=== PATIENT | female | born 1965 | race Hispanic/Latino ===

== ENCOUNTER 2021-04-28 08:04 | Emergency (ER) | payer OTHER, SELFPAY ==
[2021-04-28] VITALS (22 sets, daily range): BP systolic 118–143; BP diastolic 74–90; PULSE 60–90; RESP 8–19; O2SAT 96–100
--- NOTE | ~2021-04-28 | XR_ITS ---
EXAMINATION: XR chest 2V 04/28/2021 08:57 INDICATION: Chest pain PROCEDURE: 2 view chest COMPARISON: 12/25/2016 FINDINGS: The lungs are clear. The cardiomediastinal silhouette is within normal limits. There are no pleural effusions. There is no pneumothorax suspected. IMPRESSION: 1: NO ACUTE CARDIOPULMONARY DISEASE. Reviewed, dictated and finalized at location A.
--- NOTE | 2021-04-28 08:22 | ED.CHESTPAIN ---
HPI - Chest Pain General Chief Complaint: Chest Pain Stated Complaint: CP Time Seen by Provider: 04/28/21 08:06 History of Present Illness HPI narrative: Patient is a 55-year-old female who presents ER with chest pain. Left-sided. Began at 5:30 AM. It is a poking sensation that goes throughout her left side from the shoulder down to the lower chest wall. Its worse with physical movements. No shortness of breath. She has had some cough. No fevers or chills or sweats. No exertional component. She has found no alleviating factors. Patient also reports mild diffuse abdominal discomfort but has no additional details concerning this. Related Data Allergies Allergy/AdvReac Type Severity Reaction Status Date / Time No Known Drug Allergies Allergy Unknown Unknown Verified 04/28/21 08:20 Review of Systems Review of Systems: All systems reviewed & are unremarkable except as noted in HPI and below Constitutional: Constitutional: Denies chills, Denies fever(s) and Denies weakness ENT: Denies nasal congestion and Denies sore throat Cardiovascular: Cardiovascular: Reports chest pain and Denies radiating jaw, neck or arm pain Respiratory: Respiratory: Reports cough, Denies dyspnea and Denies wheezing Gastrointestinal: Gastrointestinal: Reports abdominal pain, Denies nausea and Denies vomiting PMFSH Past Medical History Medical History (Updated 04/28/21 @ 12:06 by Rajinder Merino MD) Diabetes Surgical History Surgical History (Updated 04/28/21 @ 08:24 by Rajinder Merino MD) History of hysterectomy Social History Social History (Updated 04/28/21 @ 08:24 by Rajinder Merino MD) Smoking status: Never smoker Exam Narrative: Exam Narrative: GENERAL: Well-appearing, well-nourished, and in no acute distress. HEAD: Normocephalic, atraumatic. CHEST: Clear to auscultation. No respiratory distress. Tender palpation of the left side of the chest wall with light palpation. HEART: Regular rate and rhythm. Normal peripheral pulses. ABDOMEN: Soft, nontender, nondistended. EXTREMITIES: Normal range of motion. No edema. SKIN: Warm, dry, no rash. NEURO: Alert and oriented x3. PSYCH: Normal mood and affect. Course Course Emergency Course: Unremarkable evaluation of chest pain. No pneumonia or cardiac injury. Discharge home. Vital Signs Vital signs: Vital Signs Pulse Rate 85 04/28/21 08:04 Respiratory Rate 18 04/28/21 08:04 Blood Pressure 143/90 H 04/28/21 08:04 Pulse Oximetry 99 04/28/21 08:04 Pulse Rate 63 04/28/21 11:30 Respiratory Rate 15 04/28/21 11:30 Blood Pressure 135/82 04/28/21 11:01 Pulse Oximetry 99 04/28/21 11:30 MDM - Chest Pain Lab Data Result diagrams: 04/28/21 08:36 04/28/21 08:36 Labs: Lab Results 04/28/21 04/28/21 04/28/21 Range/Units 08:36 08:36 08:36 WBC 6.4 (4.5-10.0) K/mm3 RBC 4.46 (4.2-5.4) M/mm3 Hgb 13.5 (12.0-15.0) g/dL Hct 40.5 (37.0-47.0) % MCV 90.8 (80-100) fl MCH 30.3 (26-34) pg MCHC 33.3 (32-36) g/dl RDW 12.8 (11.5-14.5) % Plt Count 223 (150-375) k/mm3 MPV 10.1 (7.4-10.4) fl Immature Gran % (Auto) 0.3 (0-0.5) % Neut % (Auto) 45.5 (45.5-73.1) % Lymph % (Auto) 44.8 H (18.3-44.2) % [place] % (Auto) 7.8 (2.6-8.5) % Eos % (Auto) 1.3 (0-4.4) % Baso % (Auto) 0.3 (0.2-1.2) % Lymph # (Auto) 2.86 (0.9-3.2) K/mm3 [place] # (Auto) 0.5 (0.1-0.6) K/mm3 Eos # (Auto) 0.1 (0-0.3) K/mm3 Baso # (Auto) 0.0 (0.0-0.1) K/mm3 Abs Immat Gran (auto) 0.02 (0.00-0.031) K/mm3 Absolute Neuts (auto) 2.9 (1.3-6.7) K/mm3 Absolute Nucleated RBC 0.0 (0.0-0.012) K/mm3 Nucleated RBC % 0.0 (0.0-0.2) % PT 12.6 (11.1-14.7) Seconds INR 0.9 APTT 29.2 (22.3-36.8) SECONDS Sodium 140 (137-145) mmol/L Potassium 3.4 (3.4-5.0) mmol/L Chloride 105 (98-107) mmol/L Carbon Dioxide 25 (22-30) mmol/L Anion
[2021-04-28] MEDS: KETOROLAC 30 MG/ML VIAL (*BKC) IV PUSH (08:27)
--- NOTE | 2021-04-28 08:38 | ECG_ITS ---
Measurements Intervals [place] Rate: 90 P: 45 SC: 150 QRS: 16 QRSD: 89 T: 29 QT: 366 QTc: 449 Interpretive Statements SINUS RHYTHM BASELINE ARTIFACT- V5-V6 NORMAL ECG Electronically Signed On 04-28-2021 8:41:02 CDT by Michael Loo D.O.
[2021-04-28 08:42] LABS: Basophils Percent Auto 0.3 % (0.2-1.2); Eosinophils Absolute Auto 0.1 K/mm3 (0-0.3); Eosinophils Percent Auto 1.3 % (0-4.4); Hematocrit 40.5 % (37.0-47.0); Hemoglobin 13.5 g/dL (12.0-15.0); Immature Granulocyte Absolute 0.02 K/mm3 (0.00-0.031); Immature Granulocyte Percent A 0.3 % (0-0.5); Lymphocytes Absolute Auto 2.86 K/mm3 (0.9-3.2); Lymphocytes Percent Auto 44.8 % (18.3-44.2); Mean Corpuscular HGB Conc 33.3 g/dl (32-36); Mean Corpuscular Hemoglobin 30.3 pg (26-34); Mean Corpuscular Volume 90.8 fl (80-100); Mean Platelet Volume 10.1 fl (7.4-10.4); Monocytes Absolute Auto 0.5 K/mm3 (0.1-0.6); Monocytes Percent Auto 7.8 % (2.6-8.5); Neutrophils Absolute Auto 2.9 K/mm3 (1.3-6.7); Neutrophils Percent Auto 45.5 % (45.5-73.1); Platelet Count Result 223 k/mm3 (150-375); Red Blood Count 4.46 M/mm3 (4.2-5.4); Red Cell Distribution Width 12.8 % (11.5-14.5); White Blood Count 6.4 K/mm3 (4.5-10.0)
[2021-04-28 08:52] LABS: INR 0.9; Prothrombin Time 12.6 Seconds (11.1-14.7)
[2021-04-28 08:53] LABS: Partial Thromboplastin Time 29.2 SECONDS (22.3-36.8)
[2021-04-28 08:59] LABS: Alanine Aminotransferase 30 U/L (4-35); Albumin Level 4.4 g/dL (3.5-5.1); Alkaline Phosphatase 87 U/L (38-126); Anion Gap 10 mmol/L (8-16); Aspartate Amino Transferase 26 U/L (14-36); Bilirubin,Total 0.4 mg/dL (0.2-1.3); Blood Urea Nitrogen 14 mg/dL (7-17); Carbon Dioxide 25 mmol/L (22-30); Chloride 105 mmol/L (98-107); Estimated Glomerular Filt Rate > 60; Glucose 143 mg/dL (65-105); Potassium 3.4 mmol/L (3.4-5.0); Sodium 140 mmol/L (137-145)
[2021-04-28 09:07] LABS: Troponin I < 0.012 ng/mL (0.000-0.034)
[2021-04-28 11:43] LABS: Troponin I < 0.012 ng/mL (0.000-0.034)
== END 2021-04-28 12:26 | disposition home or self-care (01) ==
PROVIDERS: Emergency Provider Emergency Medicine
DX: R07.9 Chest pain, unspecified (principal); E11.9 Type 2 diabetes mellitus without complications
CPT/HCPCS: 36415; 71046; 80053; 84484; 85025; 85610; 85730; 93005; 96374; 99284; J1885

== ENCOUNTER 2021-05-30 10:13 | Outpatient (CLI) | payer OTHER, SELFPAY ==
--- NOTE | ~2021-05-30 | US_ITS ---
EXAMINATION: US right upper quadrant DATE: 05/30/2021 10:41 INDICATION: Right upper quadrant abdominal pain. TECHNIQUE: Multiple grayscale and Doppler ultrasound images of the abdomen were obtained. COMPARISON: None FINDINGS: The visualized portions of the head and body of the pancreas are normal. There is diffuse h epatic steatosis. No liver surface nodularity. There is normal flow in main portal vein. The gallblad darling is normal in size. No gallstones or gallbladder wall thickening. There is no sonographic [place] s ign. The common duct is normal and measures 4 mm. IMPRESSION: 1. Diffuse hepatic steatosis. Reviewed, dictated and finalized at location A.
== END 2021-05-30 10:14 ==
DX: R10.11 Right upper quadrant pain (principal); K76.0 Fatty (change of) liver, not elsewhere classified
CPT/HCPCS: 76705

== ENCOUNTER 2024-08-31 08:06 | Outpatient (CLI) | payer OTHER, SELFPAY ==
--- NOTE | 2024-08-31 | EST_ITS ---
Patient Info Name: Marietta Meier Age: 58 years : 1965 Gender: Female Ht: 58 in Wt: 145 lbs BSA: 1.67 m2 HR: 68 bpm BP: 141 / 54 mmHg Exam Date: 08/31/2024 8:33 AM Exam Location: Echo Lab Patient Status: Outpatient Admit Date: 08/31/2024 Staff Ordering Physician: CRYSTALTOM [employer] Farmworker: Shobha Anthony RDCS Attending Provider: CRYSTALTOM Referring Physician: WAN WAGNER; Exercise Technologist: Shobha Anthony RDCS Exercise Physician: Michael Loo DO Exam Type: CA stress echo Study Info Indications R07.9 - Chest pain, unspecified Treadmill exercise stress echocardiogram is performed. Summary 1. 1. Inconclusive Ke exercise stress test for ischemic ST changes by ECG criteria as she achieved only 69% MPHR for age group. 2. 2. Poor functional capacity, achieving 5 METs of workload. 3. 3. Baseline hypertension. 4. 4. Appropriate HR response to exercise. 5. 5. Appropriate HR recovery at 1 minute post exercise. 6. 6. Negative stress echocardiogram for ischemia by wall motion analysis. 7. 7. Patient informed of the above results. Stress Echo Findings Left Ventricle Appropriate increase in LV endocardial thickening with systole. Appropriate augmentation of contractility with systole. No wall motion abnormality. Left Ventricle Normal LV systolic function, no wall motion abnormality. Protocol: Ke Stress ECG Details Stage: REST Duration (min): 1 min : 1 sec Speed (mph): 0.0 Grade (%): 0 HR (bpm): 59 SBP (mmHg): 141 DBP (mmHg): 54 METS: --- Stage: REST Duration (min): 5 min : 53 sec Speed (mph): 0.0 Grade (%): 0 HR (bpm): 75 SBP (mmHg): 141 DBP (mmHg): 54 METS: --- Stage: STAGE 1 Duration (min): 1 min : 0 sec Speed (mph): 1.7 Grade (%): 10 HR (bpm): 100 SBP (mmHg): 141 DBP (mmHg): 54 METS: --- Stage: STAGE 1 Duration (min): 2 min : 0 sec Speed (mph): 1.7 Grade (%): 10 HR (bpm): 101 SBP (mmHg): 141 DBP (mmHg): 54 METS: --- Stage: STAGE 1 Duration (min): 3 min : 0 sec Speed (mph): 1.7 Grade (%): 10 HR (bpm): 104 SBP (mmHg): 151 DBP (mmHg): 83 METS: --- Stage: STAGE 2 Duration (min): 0 min : 21 sec Speed (mph): 2.5 Grade (%): 12 HR (bpm): 110 SBP (mmHg): 151 DBP (mmHg): 83 METS: --- Stage: RECOVERY Duration (min): 0 min : 38 sec Speed (mph): 0.0 Grade (%): 0 HR (bpm): 76 SBP (mmHg): 151 DBP (mmHg): 83 METS: --- Stage: RECOVERY Duration (min): 1 min : 38 sec Speed (mph): 0.0 Grade (%): 0 HR (bpm): 67 SBP (mmHg): 151 DBP (mmHg): 83 METS: --- Stage: RECOVERY Duration (min): 2 min : 38 sec Speed (mph): 0.0 Grade (%): 0 HR (bpm): 64 SBP (mmHg): 151 DBP (mmHg): 83 METS: --- Stage: RECOVERY Duration (min): 2 min : 50 sec Speed (mph): 0.0 Grade (%): 0 HR (bpm): 64 SBP (mmHg): 140 DBP (mmHg): 82 METS: --- Rest HR: 75 bpm Peak HR: 111 bpm Rest Sys BP: 141 mmHg Peak Sys BP: 151 mmHg Max Pred HR: 161 bpm % Max Pred HR: 69 % Target H
== END 2024-08-31 08:07 | disposition home or self-care (01) ==
DX: R94.39 Abnormal result of other cardiovascular function study (principal); R07.9 Chest pain, unspecified
CPT/HCPCS: 93351

== ENCOUNTER 2024-09-13 10:30 | Outpatient (RCR) | payer OTHER, SELFPAY | END 2024-10-04 11:53 | disposition home or self-care (01) | LOC: ANHDMC 10:30 | DX: E11.00 Type 2 diabetes mellitus with hyperosmolarity without nonketotic hyperglycemic-hyperosmolar coma (NKHHC) (principal); E11.65 Type 2 diabetes mellitus with hyperglycemia; Z71.89 Other specified counseling | CPT/HCPCS: G0108 ==

== ENCOUNTER 2025-08-09 10:19 | Emergency (ER) | payer OTHER, SELFPAY ==
--- NOTE | ~2025-08-09 | XR_ITS ---
EXAMINATION: XR chest 2V, 08/09/2025 11:45 CDT HISTORY: epigastric pain for awhile, worse pain today COMPARISON: No comparisons available. Technique: 2 views obtained. Findings: The lungs are clear, no effusion. No pneumothorax. Heart is normal size. Mediastinal and hilar contours are within normal limits. Bony thorax no acute abnormality. Impression: No acute cardiopulmonary abnormality. Reviewed, dictated and finalized at location A. Impression: No acute cardiopulmonary abnormality.
[2025-08-09 10:32] VITALS: BP 153/79; PULSE 70; RESP 18; TEMP 36.4; O2SAT 100
[2025-08-09 11:05] VITALS: BP 138/73; PULSE 65; RESP 14; O2SAT 99
[2025-08-09 11:08] VITALS: BP 138/73; PULSE 73; RESP 14; O2SAT 100
--- NOTE | 2025-08-09 11:14 | ECG_ITS ---
Test Date: 2025-08-09 12:16:10 Measurements Intervals [place] Rate: 64 P: 46 VA: 144 QRS: 8 QRSD: 88 T: 13 QT: 422 QTc: 438 Interpretive Statements SINUS RHYTHM LOW QRS VOLTAGE IN PRECORDIAL LEADS [QRS DEFLECTION < 1.0 mV IN CHEST LEADS] No previous ECG available for comparison Electronically Signed On 08-09-2025 15:25:17 CDT by Claudia Foster M.D.
--- NOTE | 2025-08-09 11:18 | ED.GENADULT ---
HPI - General Adult General Chief complaint: Abdominal Pain Stated complaint: ABD PAIN Time Seen by Provider: 08/09/25 11:03 History of Present Illness HPI narrative: 59-year-old female presenting to the emergency department for evaluation for epigastric abdominal pain this been ongoing for the past 2 days. Patient does also report upper left and upper right abdominal pain. Patient declined any medications for pain control. She states she has had similar symptoms in the past but is unsure of what the diagnosis was. Related Data Allergies Allergy/AdvReac Type Severity Reaction Status Date / Time No Known Drug Allergies Allergy Unknown Unknown Verified 08/09/25 10:19 Review of Systems Review of Systems: All systems reviewed & are unremarkable except as noted in HPI and below PMFSH Past Medical History Medical History (Updated 08/09/25 @ 13:20 by Jey Marks MD) Diabetes Surgical History Surgical History (Updated 04/28/21 @ 08:24 by Rajinder Merino MD) History of hysterectomy Social History Social History (Updated 04/28/21 @ 08:24 by Rajinder Merino MD) Smoking status: Never smoker Exam Narrative: APPEARANCE: Well appearing, no pain, no distress, well-nourished. HEAD: normocephalic, atraumatic. EYES: PERRLA/EOMI, conjunctivae clear. NOSE: Normal no drainage EARS:TMS clear with good light reflex. THROAT: Pharynx clear, no exudate. NECK: Supple. No adenopathy, no masses. RESPIRATORY: Airway patent, respirations nonlabored. Clear to auscultation bilaterally, no rales, rhonchi, wheezing. CARDIOVASCULAR: Regular rate and rhythm without murmurs rubs or gallops. ABDOMINAL: Soft, nontender, nondistended, normal bowel sounds MUSCULOSKELETAL: Moves all extremities. Strength/ROM intact, No edema, No calf tenderness. NEURO: Alert. Cranial nerves II through XII intact. Good gait. Good coordination SKIN: Warm, dry. Normal Color Course Vital Signs Vital signs: Vital Signs Temperature 97.6 F 08/09/25 10:32 Pulse Rate 70 08/09/25 10:32 Respiratory Rate 18 08/09/25 10:32 Blood Pressure 153/79 H 08/09/25 10:32 Pulse Oximetry 100 08/09/25 10:32 Oxygen Delivery Room Air 08/09/25 10:32 Temperature 98.3 F 08/09/25 13:26 Pulse Rate 64 08/09/25 13:30 Respiratory Rate 14 08/09/25 13:30 Blood Pressure 123/73 08/09/25 13:30 Pulse Oximetry 98 08/09/25 13:30 Oxygen Delivery Room Air 08/09/25 11:05 Medical Decision Making MDM Narrative Medical decision making narrative: 59-year-old female presents emergency department for evaluation for epigastric pain. Patient is currently afebrile no leukocytosis hemoglobin 13.8. Patient has an INR 1.0. Patient has no acute abnormalities on her CMP including a normal lactic and lipase. Chest x-ray shows no acute cardiopulmonary abnormality. EKG shows normal sinus rhythm. On re-evaluation patient states she does feel improved from the GI cocktail. Patient will be started on omeprazole and encouraged close follow-up with GI. Patient was also encouraged close follow-up with primary care physician for additional outpatient cardiac testing. All questions concerns were addressed patient was well-appearing at time of discharge. Differential Diagnosis Differential Diagnosis: Gastritis, esophagitis, colitis, diverticulitis Vital Signs Vital Signs: Vital Signs Temperature 97.6 F 08/09/25 10:32 Pulse Rate 70 08/09/25 10:32 Respiratory Rate 18 08/09/25 10:32 Blood Pressure 153/79 H 08/09/25 10:32 Pulse Oximetry 100 08/09/25 10:32 Oxygen Delivery Room Air 08/09/25 10:32 Temperature 98.3 F 08/09/25 13:26 Pulse Rate 64 08/09/25 13:30 Respiratory Rate 14 08/09/25 13:30 Blood Pressure 123/73 08/09/25 13:30 Pulse Oximetry 98 08/09/25 13:30 Oxygen Delivery Room Air 08/09/25 11:05 Lab Data Lab results reviewed: Yes I reviewed the patient's lab results. 08/09/25 11:20 08/09/25 11:20 Labs: Lab Results 08/09/25 08/09/25 Range/Units 11:20 11:24 WBC 7.9 (4.5-10.0) K/mm3 RBC 4.62 (4.2-5.4) M/mm3 Hgb 13.8 (12.0-15.0) g/dL Hct 41.1 (37.0-47.0) % MCV 89.0 (80-100) fl MCH 29.9 (26-34) pg MCHC 33.6 (32-36) g/dl RDW 12.4 (11.5-14.5) % Plt Count 198 (150-375) k/mm3 MPV 10.4 (7.4-10.4) fl Immature Gran % (Auto) 0.3 (0-0.5) % Neut % (Auto) 48.6 (45.5-73.1) % Lymph % (Auto) 43.4 (18.3-44.2) % [place] % (Auto) 6.4 (2.6-8.5) % Eos % (Auto) 0.9 (0-4.4) % Baso % (Auto) 0.4 (0.2-1.2) % Lymph # (Auto) 3.44 H (0.9-3.2) K/mm3 [place] # (Auto) 0.5 (0.1-0.6) K/mm3 Eos # (Auto) 0.1 (0-0.3) K/mm3 Baso # (Auto) 0.0 (0.0-0.1) K/mm3 Abs Immat Gran (auto) 0.02 (0.00-0.031) K/mm3 Absolute Neuts (auto) 3.9 (1.3-6.7) K/mm3 Absolute Nucleated RBC 0.000 (0.0-0.012) K/mm3 Nucleated RBC % 0.0 (0.0-0.2) % PT 12.9 (11.1-14.7) Seconds INR 1.0 APTT 27.6 (22.3-36.8) Seconds Sodium 135 L (137-145) mmol/L Potassium 3.7 (3.4-5.0) mmol/L Chloride 102 (98-107) mmol/L Carbon Dioxide 25 (22-30) mmol/L Anion Gap 8 (4-12) mmol/L BUN 18 H (7-17) mg/dL Creatinine 0.46 L (0.7-1.0) mg/dL Estim Creat Clear Calc Not Reportable Estimated GFR > 60 (59 - ) Glucose 96 (65-110) mg/dL Lactic Acid 0.8 (0.7-2.0) mmol/L Calcium 8.7 (8.4-10.2) mg/dL Total Bilirubin 0.7 (0.2-1.3) mg/dL AST 35 (14-36) U/L ALT 24 (6-35) U/L Alkaline Phosphatase 76 (38-126) U/L Total Protein 8.0 (6.3-8.2) g/dL Albumin 4.5 (3.5-5.1) g/dL Lipase 120 (23-300) U/L Imaging Data Radiologist's impression: Impressions Chest X-Ray 08/09/25 12:01 Impression: No acute cardiopulmonary abnormality. Discharge Plan Discharge Clinical Impression: Acute epigastric pain Patient Disposition: Home Condition: Stable Instructions: Antibiotic Form, Diet for Stomach Ulcers and Gastritis (ED), Abdominal Pain (ED), Epigastric Pain (ED) Additional Instructions: Avoid NSAIDs and avoid alcohol. Follow a bland diet. Omeprazole as directed for the next 14 days. Have close follow-up with GI. If you have any worsening symptoms then please call or return to the emergency department. Have close follow-up with primary care physician for additional outpatient cardiac testing. Patient Language: Azerbaijani Prescriptions: New omeprazole 20 mg capsule,delayed release(DR/EC) 20 mg PO DAILY 14 Days Qty: 14 0RF No Action acetaminophen 500 mg tablet 500 mg PO QID PRN (Reason: pain) Qty: 14 0RF Follow-up/Referrals: Ryder Prado MD [Physician, Gastroenterology] UNKNOWN,DOCTOR [Primary Care Provider]
--- OUTSIDE RECORDS SUMMARY | 2025-08-09 11:25 | XMS_ITS | Clinical Summary ---
Author Organization [facility] Address [address] [place] [address] Care Team Providers Care Campaign Associate Name Role Phone Romario Martell MD Unavailable [phone] Source Comments [facility] [employer],non-owned Affiliates and Associated Physician Practices is amultiple site organization consisting of ambulatory clinics and hospital sitesin [place], [place] and [place]. This disclosure is being madepursuant to the Care Everywhere program and may not contain all information available regarding this patient. Last updated 18.[facility] [employer] Allergies No known active allergies Medications * Be aware that medications may not be up to date on this document. Alwaysverify current medications with the patient. naproxen (NAPROSYN) 500 MG tablet 2 times daily. Active diazepam (VALIUM) 2 MG tablet Take 1 Tab by mouth 3 times daily as needed for Anxiety. 90 Tab 3 09/12/2012 Active diclofenac sodium (VOLTAREN) 50 MG tablet Take 1 Tab by mouth 2 times daily. 60 Tab 3 09/12/2012 Active METFORMIN HCL PO Act pramod Active Problems Problem Noted Date Diagnosed Date Degeneration of cervical intervertebral disc 11/2011 Social History Tobacco Use Types Packs/Day Years Used Date Smoking Tobacco: Never Smokeless Tobacco: Never Alcohol Use Standard Drinks/Week Comments Yes 0 (1 standard drink = 0.6 oz pur e alcohol) rarely Comments No Sex and Gender Information Value Date Recorded Sex Assigned at Not on file Legal Sex Female 11:51 AM CDT Gender Identity Not on file Sexual Orientation Not on file Last Filed Vital Signs Vital Sign Reading Time Taken Comments Blood Pressure 120/76 05/10/2018 12:01 PM CDT Pulse 130 05/10/2018 12:01 PM CDT Temperature 38.3 C (101 F) 05/10/2018 12:01 PM CDT Respiratory Rate 18 05/10/2018 12:01 PM CDT Oxygen Saturation 96% 05/10/2018 12:01 PM CDT Inhaled Oxygen Concentration - - Weight 56.2 kg (124 lb) 05/10/2018 12:01 PM CDT Height 147.3 cm (4' 10) 05/10/2018 12:01 PM CDT Body Mass Index 25.92 05/10/2018 12:01 PM CDT Plan of Treatment Health Maintenance Due Date Last Done Comments COLOGUARD (AGES 45-75) - COL ON CA SCREENING 1965 COLON MONITORING 1965 COLONOSCOPY - COLON CA SCREENING 1965 CT COLONOGRAPHY - COLON CA SCREENING 1965 Colorectal Cancer Screening 1965 FIT - COLON CA SCREENING 1965 FLEX SIG - COLON CA SCREENING 1965 LIPID TESTING 1965 MAMMOGRAM 1965 HIV SCREENING 1979 HEPATITIS C SCREENING 10/11/1982 DTAP/TDAP/TD VACCINES (1 - Tdap) 1983 PNEUMOCOCCAL VACCINE 50+ (1 of 1 - PCV) 2014 ZOSTER VACCINE (1 of 2) 2014 SCREENING FOR DIABETES 05/10/2018 DEPRESSION SCREENING 11/15/2024 COVID-19 VACCINE (1 - 2023-2 5 season) 2025 INFLUENZA VACCINE (#1) 2025 Respiratory Syncytial Virus (RSV) Vaccine Pt: or over 60 yrs (1 - 1-dose 75+ series) 2039 HEPATITIS B VACCINE Aged Out No longe r eligible based on patient's age to complete this topic HIB VACCINE Aged Out No longer eligi ble based on patient's age to complete this topic HPV VACCINE Aged Out No longer eligi ble based on patient's age to complete this topic MENINGOCOCCAL (Group B) VACC INE SHARED DECISION-MAKING Aged Out No longer eligibl e based on patient's age to complete this topic MENINGOCOCCAL GROUPS A/C/Y/W VACCINE Aged Out No longer eligible b ased on patient's age to complete this topic Insurance [facility] Address: [facility] [address] [place] [address] MEDICAID - [place] Care Teams Campaign Associate Relationship Specialty Start Date End Date Romario Martell MD Neurological Surgery 09/12/12
--- OUTSIDE RECORDS SUMMARY | 2025-08-09 11:26 | XMS_ITS | Clinical Summary ---
Author Organization [facility] ReplySend [place] Address [address] [place] [address] [place] [address] Care Team Providers Care Plastic Outfitter Name Role Phone Matilde Lacey MD Primary Care Provider [phone] Allergies No known active allergies Medications ergocalciferol (VITAMIN D2) 50,000 unit capsuleIndications:V itamin D deficiency Take 1 Capsule (50,000 Units) by mouth every 7 days. 12 Capsule 2 Active omeprazole (PriLOSEC) 20 mg Capsule, Delayed Release(E.C.) Take 20 mg by mouth daily. Active metFORMIN (GLUCOPHAGE) 500 mg tabletIndications:Ty pe 2 diabetes mellitus with hyperosmolarity without coma, without long-term current use of insulin (CMS/HCC) Take 1 Tablet (500 mg) by mouth 2 times daily with meals. 60 Tablet 4 Active rosuvastatin (Crestor) 10 mg tabletIndications:hy perlipidemia Take 1 Tablet (10 mg) by mouth daily. 30 Tablet 1 4 Active Active Problems Problem Noted Date Diagnosed Date Vitamin D deficiency 09/16/2022 Encounter for Papanicolaou s mear for cervical cancer screening 09/16/2022 Type 2 diabetes mellitus wit h hyperosmolarity without coma, without long-term current use of insulin 08/26/2022 Perforation of tympanic membrane 08/26/2022 Low grade squamous intraepit helial lesion on cytologic smear of cervix (LGSIL) 04/14/2018 Mixed conductive and sensori neural hearing loss of both ears 07/23/2014 Degeneration of cervical intervertebral disc 11/2011 Resolved Problems Problem Noted Date Diagnosed Date Resolved Date Abnormal mammogram of both breasts 04/14/2018 07/19/2018 Prediabetes 03/21/2018 08/26/2022 Lumbago 12/19/2012 08/26/2022 Encounters Date Type Department Care Team Description 07/31/2025 External Device Data [facility] ABSTRACTION Provider, Abstract 07/31/2025 External Device Data [facility] ABSTRACTION Provider, Abstract 07/24/2025 External Device Data [facility] ABSTRACTION Provider, Abstract 07/04/2025 External Device Data [facility] ABSTRACTION Provider, Abstract 06/19/2025 External Device Data [facility] ABSTRACTION Provider, Abstract 06/05/2025 External Device Data ST[facility] ABSTRACTION Provider, Abstract 05/30/2025 External Device Data ST[facility] ABSTRACTION Provider, Abstract 05/29/2025 External Device Data STL ABSTRACTION Provider, Abstract from Last 3 Months Immunizations Immunization Administration Dates Next Due (ADACEL/BOOSTRIX)(10 YR UP) TDAP VACCINE, 0.5ML, IM 03/11/2018 INFLUENZA VACCINE QUADRIVALENT 3 YR UP PF IM 10/2022 INFLUENZA VACCINE QUADRIVALENT 6 MOS UP IM 07/26 INFLUENZA VACCINE QUADRIVALENT 6 MOS UP PF IM Family History Medical History Relation Name Comments No Known Problems Daughter 1 No Known Problems Daughter 2 No Known Problems Daughter 3 No Known Problems Daughter 4 Unknown Father Unknown Mother No Known Problems Son Relation Name Status Comments Brother 1 Alive Brother 2 Alive Brother 3 Alive Brother 4 Alive Brother 5 Alive Daughter 1 Alive Daughter 2 Alive Daughter 3 Alive Daughter 4 Alive Father Mother Sister 1 Alive Sister 2 Alive Sister 3 Alive Son Alive Social History Tobacco Use Types Packs/Day Years Used Date Smoking Tobacco: Never Smokeless Tobacco: Never Alcohol Use Standard Drinks/Week Comments Yes 0 (1 standard drink = 0.6 oz pur e alcohol) social Comments No Sex and Gender Information Value Date Recorded Sex Assigned at Not on file 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 Gender Identity Not on file Sexual Orientation Not on file Last Filed Vital Signs Vital Sign Reading Time Taken Comments Blood Pressure 130/78 09/05/2024 1:04 PM CDT Pulse 79 09/05/2024 1:04 PM CDT Temperature 36.8 C (98.2 F) 09/05/2024 1:04 PM CDT Respiratory Rate 16 09/05/2024 1:04 PM CDT Oxygen Saturation 97% 09/05/2024 1:04 PM CDT Inhaled Oxygen Concentration - - Weight 62.6 kg (138 lb) 09/05/2024 1:04 PM CDT Height 148.6 cm (4' 10.5) 09/05/2024 1:04 PM CD T Body Mass Index 28.35 09/05/2024 1:04 PM CDT Plan of Treatment Health Maintenance Due Date Last Done Comments DIABETES ANNUAL FOOT EXAM 1982 DIABETES ANNUAL RETINAL EXAM 1982 COLORECTAL SCREENING 2009 Colorectal Cancer Screening 2009 FIT-DNA Q 3 years 2009 FIT/FOBT Q 1 year 2009 Flex Sig/CT Colonography Q 5 years 2009 ZOSTER VACCINE (1 of 2) 2014 BREAST CANCER SCREENING 04/22/2019 04/22/20 18, 04/22/2018, 04/22/2018, Additional history exists DIABETES MICROALBUMIN ANNUAL SCREEN 03/29/2024 03/29/2023, 08/26/2022 Preventative Visit- Commercial 11/15/2024 09/16/2022, 03/31/2018 DIABETES HBA1C Q 6 MONTHS 01/11/20252023, 06/29/2023, 03/29/2023, Additional history exists INFLUENZA VACCINE (#1) 2025 2, 08/12/2020, 07/26/2018 LDL CHOLESTEROL ANNUAL 07/11/2025 4, 06/29/2023, 03/29/2023, Additional history exists PAP SMEAR 09/16/2025 09/16/2022, 12/2021, 12/13/2019, Additional history exists CERVICAL CANCER SCREENING 09/16/2027 HPV/Cotest (21-29) 09/16/2027 09/16/2022, 03/31/2018 HPV/Cotest (30-65) 09/16/2027 09/16/2022, 03/31/2018 DTAP/TDAP/TD VACCINES (2 - Td or Tdap) 03/11/2028 03/11/2018 RSV VACCINE (60+ or ) (1 - 1-dose 75+ series) 2039 HEPATITIS B VACCINES Aged Out No long er eligible based on patient's age to complete this topic Procedures Procedure Name Priority Date/Time Associated Diagnosis Comments LIPID PANEL Routine 07/11/2024 7:58 AM CDT Screening for condition HEMOGLOBIN A1C Routine 07/11/2024 7:58 AM CDT Type 2 diabetes mellitus with hyperosmolarity without coma, without long-term current use of insulin (CMS/HCC) MICROALBUMIN/CREAT ININE RATIO, RANDOM UR Routine 03/29/2023 7:14 AM CDT Type 2 diabetes mellitus with hyperosmolarity without coma, without long-term current use of insulin (CMS/HCC) CERV/VAG CYTO AGE BASED SCREEN PAP W CT/NG Routine 09/16/2022 2:34 PM CDT Encounter for Papanicolaou smear for cervical cancer screening MAMMOGRAM REPORT Routine 04/22/2018 from Last 3 Months or Most Recently Relevant to Health Maintenance Results * (ABNORMAL) HEMOGLOBIN A1C (07/11/2024 7:58 AM CDT) HEMOGLOBIN A1C 9.5(H) <5.7 % of total Hgb [facility] Comment: For someone without known diabetes, a hemoglobin A1c value of 6.5% or greater indicates that they may have diabetes and this should be confirmed with a follow-up test. For someone with known diabetes, a value <7% indicates that their diabetes is well controlled and a value greater than or equal to 7% indicates suboptimal control. A1c targets should be individualized based on duration of diabetes, age, comorbid conditions, and other considerations. Currently, no consensus exists regarding use of hemoglobin A1c for diagnosis of diabetes for children. ESTIMATED AVERAGE GLUCOSE (MG/DL) 226 mg/dL [facility] ESTIMATED AVERAGE GLUCOSE (MMOL/L) 12.5 mmol/L [facility] Comment: This test was performed on the Zoraida sakina c503 platform. Effective 01/31/24, a change in test platforms from the Taylor Block Stacker to the Zoraida sakina c503 may have shifted HbA1c results compared to historical results. Based on laboratory validation testing conducted at [facility], the Zoraida platform relative to the Taylor platform had an average increase in HbA1c value of < or = 0.3%. This difference is within accepted variability established by the National Glycohemoglobin Standardization Program. Note that not all individuals will have had a shift in their results and direct comparisons between historical and current results for testing conducted on different platforms is not recommended. Test Performed at: [facility] [place] [address] [address] [address] Dena Vazquez Blood 07/11/2024 7:58 AM CDT 07/13/2024 9:47 AM CDT us Concha Butler [facility] CHEMISTRY ORDERABLES Final R esult [facility] [phone] [facility] [address] [address] [address] * (ABNORMAL) LIPID PANEL (07/11/2024 7:58 AM CDT) CHOLESTEROL 239(H) <200 mg/dL [facility] HDL 56 > OR = 50 mg/dL [facility] galina Young TRIGLYCERIDE 204(H) <150 mg/dL [facility] Comment: If a non-fasting specimen was collected, consider repeat triglyceride testing on a fasting specimen if clinically indicated. Gerson et al. J. of Clin. Lipidol. 2015;9:129-169. LDL CALCULATED 149(H) mg/dL (calc) [facility] Comment: Reference range: <100 Desirable range <100 mg/dL for primary prevention; <70 mg/dL for patients with CHD or diabetic patients with > or = 2 CHD risk factors. LDL-C is now calculated using the Silvano calculation, which is a validated novel method providing better accuracy than the Friedewald equation in the estimation of LDL-C. Robert FISH et al. NIDIA. 2013;310(19): 0928-9911 (http://education.[employer]/faq/CVH954) CHOL/HDL RATIO 4.3 <5.0 (calc) [facility] NON-HDL CHOLESTEROL 183(H) <130 mg/dL (calc) [facility] Comment: For patients with diabetes plus 1 major ASCVD risk factor, treating to a non-HDL-C goal of <100 mg/dL (LDL-C of <70 mg/dL) is considered a therapeutic option. Test Performed at: [facility] [place] [address] [place] [address] Dena Vazquez Blood 07/11/2024 7:58 AM CDT 07/11/2024 10:40 PM CDT us Concha CATALAN CHEMISTRY ORDERABLES Final R esult [facility] [phone] [place] [address] [place] [address] * MICROALBUMIN/CREATININE RATIO, RANDOM UR (03/29/2023 7:14 AM CDT) Creatinine, Urine 84 20 - 275 mg/dL [facility] MICROALBUMIN, URINE 1.2 See Note: mg/dL [facility] Comment: Reference Range: Reference Range Not established MICROALBUMIN/CREAT RATIO, UR 14 <30 mcg/mg creat [facility] Comment: The ADA defines abnormalities in albumin excretion as follows: Albuminuria Category Result (mcg/mg creatinine) Normal to Mildly increased <30 Moderately increased 30-299 Severely increased > OR = 300 The ADA recommends that at least two of three specimens collected within a 3-6 month period be abnormal before considering a patient to be within a diagnostic category. Test Performed at: [facility] [address] [facility] [place] [address] Dena Vazquez MD Urine URINE SPECIMEN OBTAINED BY CLEAN CATCH PROCEDURE / Unknown 03/29/2023 7:14 AM CDT 03/30/2023 4:23 AM CDT us Sandie Medarno MD URINE ORDERABLES Final Result Performing Organization Address City/State/ZIP Co nm Phone Number [facility] [phone] [facility] [address] [place] [address] * CERV/VAG CYTO AGE BASED SCREEN PAP W CT/NG (09/16/2022 2:34 PM CDT) COMMENT (PAP): [facility] [place] Comment: This order for age-based cervical cancer and STI screening follows ACOG guidelines(PB 168, 140, BUK353). See individual assays for performing site location. CLINICAL INFORMATION [facility] [place] Comment:None given LAST MENSTRUAL PERIOD [facility] [place] Comment:NONE GIVEN PREV PAP: [facility] [place] Comment:NONE GIVEN PREV BX: [facility] [place] Comment:NONE GIVEN SOURCE [facility] [place] Comment:Endocervix ADEQUACY: [facility] [place] Comment: Satisfactory for evaluation. Endocervical/transformation zone component present. Age and/or menstrual status not provided PAP INTERP [facility] [place] Comment:Negative for intraep ithelial lesion or malignancy. COMMENT (PAP TEST) Q uest [facility] [place] Comment: This Pap test has been evaluated with computer assisted technology. ROLLER COASTER OPERATOR: Oliverio est [facility] Rosario Comment: MVB, CT(ASCP) CT Screening Location: [place] [address] [place] [address] EXPLANATORY NOTE [facility] Comment: EXPLANATORY NOTE: The Pap is a screening test for cervical cancer. It is not a diagnostic test and is subject to false negative and false positive results. It is most reliable when a satisfactory sample, regularly obtained, is submitted with relevant clinical findings and history, and when the Pap result is evaluated along with historic and current clinical information. HPV E6/E7 Not Detected Not Detected [facility] [place] Comment: Methodology: Rf Design Engineer-Mediated Amplification This assay detects E6/E7 viral messenger RNA (mRNA) from 14 high-risk HPV types (16,18,31,33,35,39,45,51,52,56,58,59,66,68). Cervical sources are required for HPV testing. If a vaginal source from a patient who has had a total hysterectomy with removal of cervix was submitted, please contact the testing laboratory for alternative testing options. For additional information, please refer to http://education.[employer]/faq/ICR491r0 (This link if provided for information/ educational purposes only.) C TRAC RNA NOT DETECTED NOT DETECTED [facility] [place] N.GONORRHOEAE RNA, TMA NOT DETECTED NOT DETECTED [facility] [place] COMMENT INFECTIOUS DISEASE [facility] [place] Comment: The analytical performance characteristics of this assay, when used to test SurePath(TM) specimens have been determined by [facility]. The modifications have not been cleared or approved by the FDA. This assay has been validated pursuant to the CLIA regulations and is used for clinical purposes. For additional information, please refer to https://education.[employer]/faq/BXI348 (This link is being provided for information/ educational purposes only.) Test Performed at: [facility] [address] [address] Juan Ross D.O., MPH SL Genital SWAB OF ENDOCERVIX / Unknown 09/16/2022 2:34 PM CDT 09/17/2022 3:41 AM CDT us Sandie Medrano MD PATHOLOGY/CYTOLOGY ORDERABLES Final Result [facility] [phone] [facility] [address] [place] [address] * MAMMOGRAM REPORT (04/22/2018) us Blanka Naqvi NP MAMMO ORDERABLES Final Result [facility] CLIA# [id number] [facility] [place] [address] from Last 3 Months or Most Recently Relevant to Health Maintenance [place] [address] [place] [address] OPEN ACCESS * Guarantor: [employer] A THRU D (C) Account Type Relation to Patient Date of Phone Billing Address Corporate Employer ATTN: UDAY GUNDERSON [address] [address] [facility] OPEN ACCESS * Guarantor: [employer] Account Type Relation to Patient Date of Phone Billing Address Corporate Employer ATTN: UDAY GUNDERSON [address] [address] Care Teams Plastic Outfitter Relationship Specialty Start Date End Date Matilde Lacey MD [address] [place] [phone] PCP - General Internal Medicine 07/11/24
[2025-08-09] MEDS: PANTOPRAZOLE SODIUM IV 40 MG VIAL IV PUSH (11:27)
[2025-08-09] MEDS: BELLADONNA ALK/PHENOB ELIX 10 ML, MAG HYDROX/ALUMINUM HYD/SIMETH 30 ML, LIDOCAINE 2% VI... PO (11:27)
[2025-08-09 11:31] LABS: Hematocrit 41.1 % (37.0-47.0); Hemoglobin 13.8 g/dL (12.0-15.0); Immature Granulocyte Percent A 0.3 % (0-0.5); Lymphocytes Absolute Auto 3.44 K/mm3 (0.9-3.2); Mean Corpuscular HGB Conc 33.6 g/dl (32-36); Mean Corpuscular Hemoglobin 29.9 pg (26-34); Mean Corpuscular Volume 89.0 fl (80-100); Nucleated Red Blood Cells Absolute Auto 0.000 K/mm3 (0.0-0.012); Nucleated Red Blood Cells Perc 0.0 % (0.0-0.2); Platelet Count Result 198 k/mm3 (150-375); Red Blood Count 4.62 M/mm3 (4.2-5.4); White Blood Count 7.9 K/mm3 (4.5-10.0)
[2025-08-09 11:43] LABS: INR 1.0; Partial Thromboplastin Time 27.6 Seconds (22.3-36.8); Prothrombin Time 12.9 Seconds (11.1-14.7)
[2025-08-09 11:53] LABS: Alanine Aminotransferase 24 U/L (6-35); Albumin Level 4.5 g/dL (3.5-5.1); Alkaline Phosphatase 76 U/L (38-126); Anion Gap 8 mmol/L (4-12); Aspartate Amino Transferase 35 U/L (14-36); Bilirubin,Total 0.7 mg/dL (0.2-1.3); Blood Urea Nitrogen 18 mg/dL (7-17); Calcium 8.7 mg/dL (8.4-10.2); Carbon Dioxide 25 mmol/L (22-30); Chloride 102 mmol/L (98-107); Estimated Glomerular Filt Rate > 60; Glucose 96 mg/dL (65-110); Lipase 120 U/L (23-300); Potassium 3.7 mmol/L (3.4-5.0); Sodium 135 mmol/L (137-145); Total Protein 8.0 g/dL (6.3-8.2)
[2025-08-09 13:26] VITALS: BP 125/73; PULSE 64; RESP 14; TEMP 36.8; O2SAT 98
[2025-08-09 13:30] VITALS: BP 123/73; PULSE 64; RESP 14; O2SAT 98
--- OUTSIDE RECORDS SUMMARY | 2025-08-09 13:45 | XMS_ITS | Clinical Summary ---
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 Based on laboratory validation testing conducted at [facility], the Zoraida platform relative to the Taylor [...] platforms is not recommended. Test Performed at: [facility] [place] [address] [address] [address] Dena Vazquez Blood 07/11/2024 7:58 AM CDT 07/13/2024 9:47 AM CDT us Concha Btuler [facility] CHEMISTRY ORDERABLES Final R esult [facility] [phone] [place] [address] [address] [address] * (ABNORMAL) LIPID PANEL (07/11/2024 7:58 AM CDT) CHOLESTEROL 239(H) <200 mg/dL [facility] HDL 56 > OR = 50 mg/dL [facility] galina Young TRIGLYCERIDE 204(H) <150 mg/dL [facility] Comment: If a non-fasting specimen was collected, consider repeat triglyceride testing on a fasting specimen if clinically indicated. Gerson et al. J. of Clin. Lipidol. 2015;9:129-169. LDL CALCULATED 149(H) mg/dL (calc) [facility] Comment: Reference range: <100 Desirable range <100 mg/dL for primary prevention; <70 mg/dL for patients with CHD or diabetic patients with > or = 2 CHD risk factors. LDL-C is now calculated using the Silvano calculation, which is a validated novel method providing better accuracy than the Friedewald equation in the estimation of LDL-C. Robert FISH et al. NIDIA. 2013;310(19): 3207-6216 (http://education.[employer]/faq/KYH388) CHOL/HDL RATIO 4.3 <5.0 (calc) [facility] NON-HDL CHOLESTEROL 183(H) <130 mg/dL (calc) [facility] galina Young Comment: For patients with diabetes plus 1 major ASCVD risk factor, treating to a non-HDL-C goal of <100 mg/dL (LDL-C of <70 mg/dL) is considered a therapeutic option. Test Performed at: [facility] [place] [address] [place] [address] Dena Vazquez Blood 07/11/2024 7:58 AM CDT 07/11/2024 10:40 PM CDT us Concha CATALAN CHEMISTRY ORDERABLES Final R esult [facility] [phone] [place] [address] [place] [address] * MICROALBUMIN/CREATININE RATIO, RANDOM UR (03/29/2023 7:14 AM CDT) Creatinine, Urine 84 20 - 275 mg/dL [facility] MICROALBUMIN, URINE 1.2 See Note: mg/dL [facility] Comment: Reference Range: Reference Range [...] within a diagnostic category. Test Performed at: [facility] [address] [place] [address] Dena Vazquez MD Urine URINE SPECIMEN OBTAINED BY CLEAN CATCH PROCEDURE / Unknown 03/29/2023 7:14 AM CDT 03/30/2023 4:23 AM CDT us Sandie Medrano MD URINE ORDERABLES Final Result Performing Organization Address City/State/ZIP Co ri Phone Number [facility] [phone] [facility] [address] [place] [address] * CERV/VAG CYTO AGE BASED SCREEN PAP W CT/NG (09/16/2022 2:34 PM CDT) COMMENT (PAP): [facility] [place] Comment: This order for age-based cervical cancer and STI screening follows ACOG guidelines(PB 168, 140, LWK758). See individual assays for performing site location. CLINICAL INFORMATION [facility] [place] Comment:None given LAST MENSTRUAL PERIOD [facility] [place] Comment:NONE GIVEN PREV PAP: [facility] [place] Comment:NONE GIVEN PREV BX: [facility] [place] Comment:NONE GIVEN SOURCE [facility] [place] Comment:Endocervix ADEQUACY: [facility] [place] Comment: Satisfactory for evaluation. Endocervical/transformation zone component present. Age and/or menstrual status not provided PAP INTERP [facility] [place] Comment:Negative for intraep ithelial lesion or malignancy. COMMENT (PAP TEST) Q uest [facility] [place] Comment: This Pap test has been evaluated with computer assisted technology. INFORMATION SERVICES VICE PRESIDENT: Oliverio est [facility] Rosario Comment: MVB, CT(ASCP) CT Screening Location: [place] [address] [place] [address] EXPLANATORY NOTE [facility] Comment: EXPLANATORY NOTE: The Pap is [...] information. HPV E6/E7 Not Detected Not Detected [facility] [place] Comment: Methodology: Die Repairer Trimmer Dies-Mediated Amplification This assay detects E6/E7 viral messenger RNA (mRNA) from 14 high-risk HPV types (16,18,31,33,35,39,45,51,52,56,58,59,66,68). Cervical sources are required for HPV testing. If a vaginal source from a patient who has had a total hysterectomy with removal of cervix was submitted, please contact the testing laboratory for alternative testing options. For additional information, please refer to http://education.[employer]/faq/KMV953e9 (This link if provided for information/ educational purposes only.) C TRAC RNA NOT DETECTED NOT DETECTED [facility] [place] N.GONORRHOEAE RNA, TMA NOT DETECTED NOT DETECTED [facility] [place] COMMENT INFECTIOUS DISEASE [facility] [place] Comment: The analytical performance characteristics of this assay, when used to test SurePath(TM) specimens have been determined by [facility]. The modifications have not been cleared or approved by the FDA. This assay has been validated pursuant to the CLIA regulations and is used for clinical purposes. For additional information, please refer to https://education.[employer]/faq/VUF983 (This link is being provided for information/ educational purposes only.) Test Performed at: [facility] [address] [address] Juan Ross D.O., MPH SL Genital SWAB OF ENDOCERVIX / Unknown 09/16/2022 2:34 PM CDT 09/17/2022 3:41 AM CDT us Sandie Medrano MD PATHOLOGY/CYTOLOGY ORDERABLES Final Result [facility] [phone] [facility] [address] [place] [address] * MAMMOGRAM REPORT (04/22/2018) us Blanka Naqvi NP MAMMO ORDERABLES Final Result [facility] CLIA# [id number] [facility] [place] [address] from Last 3 Months or Most Recently Relevant to Health Maintenance [place] [place] [address] OPEN ACCESS * Guarantor: [employer] A THRU D (C) Account Type Relation to Patient Date of Phone Billing Address Corporate Employer ATTN: UDAY GUNDERSON [address] [address] [facility] OPEN ACCESS * Guarantor: [employer]CH[employer] Account Type Relation to Patient Date of Phone Billing Address Corporate Employer ATTN: UDAY GUNDERSON [address] [address] Care Teams Gate Tender Relationship Specialty Start Date End Date Matilde Lacey MD [address] [place] [phone] PCP - General Internal Medicine 07/11/24
== END 2025-08-09 13:36 | disposition home or self-care (01) ==
PROVIDERS: Emergency Provider Emergency Medicine
DX: R10.13 Epigastric pain (principal)
CPT/HCPCS: 36415; 71046; 80053; 83605; 83690; 85025; 85610; 85730; 93005; 96374; 99284; A9270; J2470